=== PATIENT | female | born 1950 | race Two or more races ===

== ENCOUNTER 2018-12-01 11:14 | Outpatient (CLI) | payer OTHER ==
[~2018-12-01 11:14] MED LIST: GLUCOTROL10 MG PO; METFORMIN HCL500 MG PO; PLAVIX75 MG PO; SYNTHROID112 MCG PO
== END 2018-12-01 11:19 | disposition home or self-care (01) ==
LOC: RAD 11:14
DX: M12.861 Other specific arthropathies, not elsewhere classified, right knee (principal); M19.91 Primary osteoarthritis, unspecified site

== ENCOUNTER 2018-12-03 08:41 | Outpatient (CLI) | payer OTHER | END 2018-12-03 08:42 | disposition home or self-care (01) | LOC: SONOGRAMA 08:41 → MAMO-SONO 09:45 | DX: M12.9 Arthropathy, unspecified (principal); M19.90 Unspecified osteoarthritis, unspecified site ==

== ENCOUNTER 2018-12-28 07:48 | Outpatient (CLI) | payer OTHER | END 2018-12-28 08:52 | disposition home or self-care (01) | LOC: LAB 07:48 | DX: D68.8 Other specified coagulation defects (principal); E78.2 Mixed hyperlipidemia; N39.0 Urinary tract infection, site not specified; R07.89 Other chest pain; I10 Essential (primary) hypertension ==

== ENCOUNTER 2021-02-06 14:22 | Outpatient (CLI) | payer OTHER | END 2021-02-06 14:40 | disposition home or self-care (01) | LOC: MRI 14:22 → RAD 14:22 → MRI 14:40 | PROVIDERS: ATTEND Orthopaedic Surgery | DX: M25.561 Pain in right knee (principal); M25.562 Pain in left knee ==

== ENCOUNTER → 2021-02-20 | Outpatient (CLI) | payer OTHER | END | disposition home or self-care (01) | LOC: MAMO-SONO 10:45 → SONOGRAMA 11:06 | PROVIDERS: ATTEND Orthopaedic Surgery | DX: S83.200A Bucket-handle tear of unspecified meniscus, current injury, right knee, initial encounter (principal); M25.561 Pain in right knee; M25.562 Pain in left knee ==

== ENCOUNTER 2021-07-04 10:06 | Outpatient (CLI) | payer OTHER | END 2021-07-04 10:08 | disposition home or self-care (01) | LOC: NUCLEAR 10:06 | PROVIDERS: ATTEND Orthopaedic Surgery | DX: M25.461 Effusion, right knee (principal); M25.462 Effusion, left knee; I87.2 Venous insufficiency (chronic) (peripheral) ==

== ENCOUNTER 2021-07-04 10:59 | Outpatient (CLI) | payer OTHER | END 2021-07-04 11:06 | disposition home or self-care (01) | LOC: RAD 10:59 | PROVIDERS: ATTEND Orthopaedic Surgery | DX: M25.561 Pain in right knee (principal); M25.562 Pain in left knee ==

== ENCOUNTER 2021-09-09 08:56 | Outpatient (CLI) | payer OTHER | END 2021-09-09 09:12 | disposition home or self-care (01) | LOC: MAMO-SONO 08:56 | PROVIDERS: ATTEND Internal Medicine Cardiovascular Disease | DX: R92.0 Mammographic microcalcification found on diagnostic imaging of breast (principal); N64.59 Other signs and symptoms in breast; Z12.31 Encounter for screening mammogram for malignant neoplasm of breast ==

== ENCOUNTER → 2022-12-02 | Outpatient (CLI) | payer OTHER | END | disposition home or self-care (01) | LOC: RAD 09:37 | PROVIDERS: ATTEND Internal Medicine Cardiovascular Disease | DX: M12.9 Arthropathy, unspecified (principal) ==

== ENCOUNTER 2025-03-02 09:19 | Outpatient (CLI) | payer OTHER | END 2025-03-02 09:20 | disposition home or self-care (01) | LOC: NUCLEAR 09:19 | PROVIDERS: ATTEND Psychiatry & Neurology Clinical Neurophysiology | DX: G30.0 Alzheimer's disease with early onset (principal); F02.80 Dementia in other diseases classified elsewhere, unspecified severity, without behavioral disturbance, psychotic disturbance, mood disturbance, and anxiety | CPT/HCPCS: 78803; A9557 ==

== ENCOUNTER 2025-05-23 12:45 | Outpatient (CLI) | payer OTHER | END 2025-05-23 12:51 | disposition home or self-care (01) | LOC: MAMO-SONO 12:45 | PROVIDERS: ATTEND Internal Medicine Cardiovascular Disease | DX: N60.11 Diffuse cystic mastopathy of right breast (principal); N60.12 Diffuse cystic mastopathy of left breast; Z12.31 Encounter for screening mammogram for malignant neoplasm of breast ==

== ENCOUNTER 2025-08-28 09:11 | Outpatient (CLI) | payer OTHER | END 2025-08-28 09:18 | disposition home or self-care (01) | LOC: MRI 09:11 | PROVIDERS: ATTEND Internal Medicine Cardiovascular Disease | DX: M19.90 Unspecified osteoarthritis, unspecified site (principal) | CPT/HCPCS: 73721 ==